=== PATIENT | female | born 1985 | race Two or more races ===

== ENCOUNTER 2018-10-02 09:13 | Emergency (ER) | payer OTHER ==
[~2018-10-02] VITALS: Ht 165.1 cm; Wt 68.0 kg
[2018-10-02 09:15] VITALS: BP 131/86
[2018-10-02] MEDS ORDERED: NAPROXEN 500 MG TABLET PO STA (09:32)
[2018-10-02 09:43] LABS: BILIRUBIN,URINE NEGATIVE (NEG); CLARITY,URINE CLOUDY; COLOR,URINE YELLOW; NITRITE,URINE NEGATIVE (NEG); PH,URINE 6.5; PROTEIN,URINE 100 mg/dL (NEG-TRACE); UROBILINOGEN,URINE 0.2 mg/dL (0.2 mg/dL)
[2018-10-02] MEDS ORDERED: HYDROcodone/APAP 5/325MG 1 TAB TABLET PO ONE (09:45)
[2018-10-02] MEDS ORDERED: CYCLOBENZAPRINE 10 MG TABLET. PO ONE (09:45)
[2018-10-02 09:57] LABS: SQUAMOUS EPITHELIAL CELL,UR FEW /LPF
[2018-10-02 10:00] LABS: BACTERIA,URINE FEW /HPF (0-FEW); WBC,URINE >40 /HPF (0-4)
--- NOTE | 2018-10-02 10:00 | PHYS DOC ---
Adult General Chief Complaint Chief Complaint: FLANK PAIN HPI HPI Patient is a 32 year old female, medical history who presents with dysuria for 2 days. Patient is also complaining of slight lower back pain for 2 days. Denies any fever. Denies any chance she is . Denies any hematuria. Denies any abdominal pain. Review of Systems Review of Systems Constitutional: Denies fever or chills [] Eyes: Denies change in visual acuity, redness, or eye pain [] HENT: Denies nasal congestion or sore throat [] Respiratory: Denies cough or shortness of breath [] Cardiovascular: No additional information not addressed in HPI [] GI: Denies abdominal pain, nausea, vomiting, bloody stools or diarrhea [] : Reports dysuria, denies hematuria [] Musculoskeletal: Denies back pain or joint pain [] Integument: Denies rash or skin lesions [] Neurologic: Denies headache, focal weakness or sensory changes [] All other systems were reviewed and found to be within normal limits, except as documented in this note. Current Medications Current Medications Current Medications Medications (Trade) Dose Ordered Sig/[place] Start Time Stop Time Status Last Admin Dose Admin Acetaminophen/ Hydrocodone Bitart (Lortab 5/325) 2 tab 1X ONCE 10/02/18 09:45 10/02/18 09:55 DC 10/02/18 10:03 2 TAB Cyclobenzaprine HCl (Flexeril) 10 mg 1X ONCE 10/02/18 09:45 10/02/18 09:55 DC 10/02/18 10:03 10 MG Naproxen (Naprosyn) 500 mg 1X STAT 10/02/18 09:32 10/02/18 09:55 DC 10/02/18 10:03 500 MG Allergies Allergies Allergies Coded Allergies Type Severity Reaction Last Updated Verified Sulfa (Sulfonamide Antibiotics) Allergy Intermediate Hives 10/02/18 Yes Physical Exam Physical Exam Constitutional: Well developed, well nourished, no acute distress, non-toxic appearance. [] HENT: Normocephalic, atraumatic, bilateral external ears normal, oropharynx moist, no oral exudates, nose normal. [] Eyes: PERRLA, EOMI, conjunctiva normal, no discharge. [] Neck: Normal range of motion, no tenderness, supple, no stridor. [] Cardiovascular:Heart rate regular rhythm, no murmur [] Lungs & Thorax: Bilateral breath sounds clear to auscultation [] Abdomen: Bowel sounds normal, soft, no tenderness, no masses, no pulsatile masses. [] Skin: Warm, dry, no erythema, no rash. [] Back: Diffuse paraspinal muscle tenderness to the lumbar spine, no midline lumbar spine tenderness, no CVA tenderness. [] Extremities: No tenderness, no cyanosis, no clubbing, ROM intact, no edema. [] Neurologic: Alert and oriented X 3, normal motor function, normal sensory function, no focal deficits noted. [] Psychologic: Affect normal, judgement normal, mood normal. [] Current Patient Data Vital Signs Vital Signs Date Time Temp Pulse Resp B/P (MAP) Pulse Ox O2 Delivery O2 Flow Rate FiO2 10/02/18 09:15 98.3 81 16 131/86 (101) 99 Room Air 98.3 Lab Values Laboratory Tests Test 10/02/18 09:25 10/02/18 09:30 Urine Collection Type Unknown Urine Color Yellow Urine Clarity Cloudy Urine pH 6.5 Urine Specific [place] 1.015 Urine Protein 100 mg/dL (NEG-TRACE) Urine Glucose (UA) Negative mg/dL (NEG) Urine Ketones (Stick) Negative mg/dL (NEG) Urine Blood Large (NEG) Urine Nitrite Negative (NEG) Urine Bilirubin Negative (NEG) Urine Urobilinogen Dipstick 0.2 mg/dL (0.2 mg/dL) Urine Leukocyte Esterase Large (NEG) Urine RBC 6-10 /HPF (0-2) Urine WBC >40 /HPF (0-4) Urine Squamous Epithelial Cells Few /LPF Urine Bacteria Few /HPF (0-FEW) POC Urine HCG, Qualitative Hcg negative (Negative) EKG EKG [] Radiology/Procedures Radiology/Procedures [] Course & Med Decision Making Course & Med Decision Making Pertinent Labs and Imaging studies reviewed. (See chart for details) This is a 32-year-old female patient presenting to the ED today with dysuria and slight low back pain since yesterday. Urine positive for UTI, discharged on cephalexin and Pyridium. Discharged with naproxen and cyclobenzaprine for the back pain. Dragon Disclaimer Dragon Disclaimer This electronic medical record was generated, in whole or in part, using a voice recognition dictation system. Departure Departure Impression: Primary Impression: Urinary tract infection Additional Impression: Low back pain Disposition: HOME, SELF-CARE Condition: STABLE Referrals: UNKNOWN PCP NAME (PCP) follow up in one week with your doctor Patient Instructions: Back Pain, Adult, Urinary Tract Infection Additional Instructions: You have urinary tract infection, we put you on antibiotics, ensure you complete them. Take the prescribed pain medicines as needed for pain. Follow-up with your own doctor in 1-2 weeks. Push fluids. Scripts Cephalexin (CEPHALEXIN) 500 Mg Tablet 1 TAB PO BID, #14 TAB Prov: VANESA MALDONADO APRN 10/02/18 Naproxen (NAPROXEN) 500 Mg Tablet.dr 1 TAB PO BID, #60 TAB 0 Refills Prov: VANESA MALDONADO APRN 10/02/18 Cyclobenzaprine Hcl (CYCLOBENZAPRINE HCL) 10 Mg Tablet 1 TAB PO TID, #30 TAB Prov: VANESA MALDONADO APRN 10/02/18 Problem Qualifiers Primary Impression: Urinary tract infection Urinary tract infection type: site unspecified Hematuria presence: without hematuria Qualified Codes: N39.0 - Urinary tract infection, site not specified Additional Impression: Low back pain Chronicity: acute Back pain laterality: bilateral Sciatica presence: without sciatica Qualified Codes: M54.5 - Low back pain VANESA MALDONADO APRN Oct 02, 2018 10:00
[2018-10-02] MEDS ORDERED: NAPR500T8 PO (10:19)
[2018-10-02] MEDS ORDERED: CEPH500T PO (10:19)
[2018-10-02] MEDS ORDERED: CYCL10TA2 PO (10:19)
== END 2018-10-02 10:39 | disposition home or self-care (01) ==
LOC: ER 09:13
DX: N39.0 Urinary tract infection, site not specified (principal); Z88.2 Allergy status to sulfonamides
CPT/HCPCS: 81001; 81025; 87086; 99284

== ENCOUNTER 2019-05-31 23:12 | Emergency (ER) | payer OTHER ==
[~2019-05-31] VITALS: Ht 170.2 cm; Wt 68.0 kg
[~2019-05-31 23:12] MED LIST: CEPH500T PO; CYCL10TA2 PO; NAPR500T8 PO
[2019-06-01] MEDS ORDERED: NAPR-695 PO (00:14)
[2019-06-01] MEDS ORDERED: ORPH100T PO (00:14)
[2019-06-01] MEDS ORDERED: PRED20TA PO (00:14)
--- NOTE | 2019-06-01 00:14 | PHYS DOC ---
Past Medical History Past Medical History: No Pertinent History Past Surgical History: No Surgical History Alcohol Use: None Drug Use: None Adult General Chief Complaint Chief Complaint: FLANK PAIN HPI HPI Patient is a 33 year old female who arrives to the ED via POV with her daughter. She presents with lower left-sided back and leg pain. She states the pain has been present for 1 month and has gotten progressively worse, especially over the last 10 days. She states the pain is not associated with any trauma, fall, or specific injury. 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 She states the pain is sharp and rated as an 8 out of 10. It begins in her lower left back, near her sacroiliac joint, and radiates down the back of her leg to her toes. She denies any paresthesias. She states the pain is worse with ambulation and slightly better with rest. The pain gets much worse when she has been sitting for a long time. She was taking ibuprofen, which provided relief initially, but has not helped the last 2 weeks. She has no other complaints at this time. Review of Systems Review of Systems Constitutional: Denies fever or chills Eyes: Denies redness or eye pain HENT: Denies nasal congestion or sore throat Respiratory: Denies cough or shortness of breath Cardiovascular: Denies chest pain or palpitations GI: Denies abdominal pain, nausea, or vomiting : Denies dysuria or hematuria Musculoskeletal: Reports back and right leg pain. Integument: Denies rash or skin lesions Neurologic: Denies headache, focal weakness or sensory changes Complete systems were reviewed and found to be within normal limits, except as documented in this note. Current Medications Current Medications Current Medications Medications (Trade) Dose Ordered Sig/[place] Start Time Stop Time Status Last Admin Dose Admin Dexamethasone (Decadron) 10 mg 1X ONCE 06/01/19 00:15 06/01/19 00:16 DC Ketorolac Tromethamine (Toradol 30mg Vial) 30 mg 1X ONCE 06/01/19 00:15 06/01/19 00:16 DC Allergies Allergies Allergies Coded Allergies Type Severity Reaction Last Updated Verified Sulfa (Sulfonamide Antibiotics) Allergy Intermediate Hives 10/02/18 Yes Physical Exam Physical Exam Constitutional: Well developed, well nourished, no acute distress, non-toxic appearance Eyes: PERRL, EOMI, conjunctiva normal, no discharge Cardiovascular: Heart rate normal, regular rhythm Abdomen: Soft, no tenderness Skin: Warm, dry, no erythema, no rash Back: Tenderness to left SI joint. No CVA tenderness Extremities: Decreased ROM of left leg. Positive straight leg raise test on left. Normal sensation. Neurologic: Alert and oriented X 3, normal motor function, normal sensory function, no focal deficits noted Psychologic: Affect normal, judgement normal, mood normal Current Patient Data Vital Signs Vital Signs Date Time Temp Pulse Resp B/P (MAP) Pulse Ox O2 Delivery O2 Flow Rate FiO2 05/31/19 23:32 98.2 61 18 124/87 (99) 100 Room Air 98.2 Lab Values Laboratory Tests Test 05/31/19 23:45 POC Urine HCG, Qualitative Hcg negative (Negative) EKG EKG [] Radiology/Procedures Radiology/Procedures [] Course & Med Decision Making Course & Med Decision Making Patient is a 33-year-old female who presents with lower back and leg pain. Exam is suggestive of sciatica. Patient given steroids to decrease inflammation and Norflex for pain. Patient given referral for Dr. Hdz for pain management, physical therapy, and further imaging, if necessary. Patient stable for discharge with outpatient follow-up with PCP. Discussed findings and plan with patient and family, who acknowledge understanding and agreement. Dragon Disclaimer Dragon Disclaimer This electronic medical record was generated, in whole or in part, using a voice recognition dictation system. Departure Departure Impression: Primary Impression: Low back pain Additional Impression: Sciatica Disposition: 01 HOME, SELF-CARE Condition: STABLE Referrals: UNKNOWN PCP NAME (PCP) INOCENTE HDZ MD Patient Instructions: Sciatica with [facility] Scripts Naproxen (NAPROXEN) 375 Mg Tablet 1 TAB PO TID PRN for PAIN, #20 TAB Prov: COBY PIERCE DO 06/01/19 Prednisone (PREDNISONE) 20 Mg Tablet 2 TAB PO DAILY, #8 TAB Prov: COBY PIERCE DO 06/01/19 Orphenadrine Citrate (ORPHENADRINE CITRATE) 100 Mg Tablet.er 100 MG PO BID PRN for MUSCLE PAIN, #14 Prov: COBY PIERCE DO 06/01/19 Problem Qualifiers Primary Impression: Low back pain Chronicity: acute Back pain laterality: left Sciatica presence: with sciatica Sciatica laterality: sciatica of left side Qualified Codes: M54.42 - Lumbago with sciatica, left side Additional Impression: Sciatica Laterality: left Qualified Codes: M54.32 - Sciatica, left side COBY PIERCE DO Jun 01, 2019 00:14
[2019-06-01] MEDS ORDERED: KETOROLAC 30 MG/ML VIAL. IM ONE (00:15)
[2019-06-01] MEDS ORDERED: DEXAMETHASONE 4 MG TABLET PO ONE (00:15)
[2019-06-01 00:29] VITALS: BP 129/88
[2019-06-01] MEDS ORDERED: ORPHENADRINE CITRATE 60 MG/2 ML VIAL. IV ONE (00:30)
[2019-06-01] MEDS ORDERED: KETOROLAC 15 MG/ML VIAL. IV ONE (00:30)
== END 2019-06-01 00:40 | disposition home or self-care (01) ==
LOC: ER 23:12
DX: M54.42 Lumbago with sciatica, left side (principal); Z88.2 Allergy status to sulfonamides
CPT/HCPCS: 81025; 96374; 96375; 99284; J1885; J2360; J8540